=== PATIENT | male | born 1955 | race Caucasian/White ===

== ENCOUNTER 2017-02-08 17:08 | Emergency (ER) | payer OTHER ==
[2017-02-08 17:34] VITALS: BP 136/75
--- NOTE | 2017-02-08 17:52 | ER Document Report ---
ED Medical Screen (RME) - General Chief Complaint: Eye Problem Stated Complaint: RIGHT EYE PROBLEM Time Seen by Provider: 02/08/17 17:49 Notes: Patient states he woke up this morning seeing "billions" of black hollowed circles with a few solid black dots in his vision, right eye. Still has this going on right now. Denies eye pain, also states he was seeing white circular flashes in his right eye this morning but this has resolved. history of cataract surgery in 2013 and . Patient denies any eye trauma. No previous episodes of this in the past. I have greeted and performed a rapid initial assessment of this patient. A comprehensive ED assessment and evaluation of the patient, analysis of test results and completion of the medical decision making process will be conducted by additional ED providers. TRAVEL OUTSIDE OF THE [place] IN LAST 30 DAYS: No - Related Data Allergies/Adverse Reactions: shellfish derived Allergy (Verified 02/08/17 17:29) Past Medical History - Past Medical History Cardiac Medical History: Denies: Hx Heart Attack, Hx Hypertension Pulmonary Medical History: Denies: Hx Asthma Neurological Medical History: Denies: Hx Cerebrovascular Accident, Hx Seizures Renal/ Medical History: Denies: Hx Peritoneal Dialysis GI Medical History: Reports: Hx Hiatal Hernia - ?. Denies: Hx Hepatitis, Hx Ulcer Infectious Medical History: Denies: Hx Hepatitis Past Surgical History: Denies: Hx Open Heart Surgery, Hx Pacemaker Physical Exam - Vital signs Vitals: Temp Pulse Resp BP Pulse Ox 98.2 F 80 18 136/75 H 96 02/08/17 17:29 02/08/17 17:29 02/08/17 17:29 02/08/17 17:29 02/08/17 17:29 Course - Vital Signs Vital signs: Temp Pulse Resp BP Pulse Ox 98.2 F 80 18 136/75 H 96 02/08/17 17:29 02/08/17 17:29 02/08/17 17:29 02/08/17 17:29 02/08/17 17:29
== END 2017-02-08 20:45 | disposition left against medical advice (07) ==
LOC: ER 17:08
DX: Z53.9 Procedure and treatment not carried out, unspecified reason (principal); K57.11 Diverticulosis of small intestine without perforation or abscess with bleeding
CPT/HCPCS: 99281

== ENCOUNTER 2019-10-26 06:28 | Day surgery (SDC) | payer OTHER ==
[2019-10-26] MEDS ORDERED: PROPOFOL INJ 200 MG/20 ML VIAL IV ONE ×2 (07:36→08:14)
[2019-10-26] MEDS ORDERED: SIMETHICONE 40 MG/0.6 ML DROPS 30ML ONE (08:14)
[2019-10-26 08:53] VITALS: BP 125/86
--- NOTE | 2019-10-26 13:02 | Operative Report ---
Operative Report DATE OF SURGERY: 10/26/19 Operative Report: The risk, benefits and alternatives of the procedure including the risk of bleeding, perforation requiring surgery have been explained to the patient in detail and informed consent has been obtained. Patient was placed in the left, lateral decubital position. Timeout was called. Propofol medication is administered. Rectal examination is done which did not reveal any masses, tears or fissures. An Olympus videoscope was introduced into the patient's rectum. Scope was then carefully advanced all the way to the cecum. Cecum was identified by the usual anatomical landmarks including the ileocecal valve as well as the appendiceal office. Photodocumentation is obtained. Scope was then sequentially pulled back via the various segments of the colon including the ascending colon, back flexure, transverse colon, splenic flexure, descending colon as well as the rectosigmoid portions of the colon. Retroflexion maneuvers performed. PREOPERATIVE DIAGNOSIS: Colorectal cancer screening POSTOPERATIVE DIAGNOSIS: Normal screening colonoscopy OPERATION: Diagnostic colonoscopy SURGEON: RAFAEL CHURCHILL ANESTHESIA: LMAC TISSUE REMOVED OR ALTERED: As noted above. COMPLICATIONS: None. ESTIMATED BLOOD LOSS: None. INTRAOPERATIVE FINDINGS: As noted above. Incidental finding of internal hemorrhoids PROCEDURE: Patient tolerated the procedure well. No immediate postprocedure complications are noted. Patient is discharged in good condition. Discharge date 10/26/2019. Discharge diet: Regular. Discharge activity: Regular. 2 to 3-week follow-up to discuss findings. 10-year surveillance colonoscopy.
== END 2019-10-26 08:51 | disposition home or self-care (01) ==
LOC: END 06:28
PROVIDERS: ATTEND Internal Medicine Gastroenterology
DX: Z12.11 Encounter for screening for malignant neoplasm of colon (principal); K64.8 Other hemorrhoids; Z87.891 Personal history of nicotine dependence; I10 Essential (primary) hypertension; D64.9 Anemia, unspecified; Z79.899 Other long term (current) drug therapy
CPT/HCPCS: 45378; 00812; J3490; J2704; 812